=== PATIENT | male | born 1960 | race Caucasian/White ===

== ENCOUNTER 2023-08-18 01:29 | Emergency (ER) | payer OTHER, SELFPAY ==
[2023-08-18 01:33] VITALS: BP 149/86
--- NOTE | 2023-08-18 03:00 | ED.MUSCINJ ---
HPI-Injury
General
Chief Complaint: Fall
Source: patient and spouse
Exam Limitations: none
Time Seen by Provider: 08/18/23 02:51
Nursing documentation reviewed up to this point in time: agreed with
Travel History
Have you had any contact with someone who has COVID-19?: No
Do you have any symptoms of coronavirus? Fever > 100 degrees, chills, cough, shortness of breath, sore throat, loss of taste or smell, muscle aches, or headache?: No
History of Present Illness-Injury
Initial Injury comments:
Pleasant 63-year-old male that presents with left shoulder injury. [place] a step and slammed his shoulder into a concrete wall. Patient had immediate pain. Denies head injury or
loss of consciousness. Denies numbness or tingling. He states that the pain is on the upper arm. He has no elbow pain. Denies any chest pain or shortness of breath. Reports no other injury.
Past History
Past History
ED Past Medical History: HTN and Other (nephrolithiasis)
ED Past Surgical History: Other (1981 upper jaw repair due to bone deficiency on right)
Patient has exhibited threatening behavior?: No
PSI?: No
Social History
Tobacco: Non-smoker
Alcohol: None
Drug: None
Personal:
Living: with family
Employment: Employed
Family History
Family History: Other (reviewed and non-contributory)
Musculoskeletal Injury Exam
Musculoskeletal Injury Exam
Left Shoulder:
Pain with Movement?: Mild
Tender to palpation?: Mild (Medial arm)
Soft tissue swelling?: None
External deformity and angulation?: None
Joint effusion?: None
Contusion?: None
Hematoma-local bleeding into tissue?: None
Strain- Sprain- Tear (Connective tissue injury)?: Moderate
Crepitus with movement?: No
Malalignment/deformity?: No
Range of motion: Limited (Secondary to pain)
Distal skin color and temperature: normal-warm & good color
Capillary Refill: normal
Normal distal neurovascular exam?: Yes
Phy Exam
General Physical Exam
General Presentation: well appearing and mild distress
General age: appears stated age
General Skin: warm
General Habitus: normal
General Mental: alert
General Hydration: appears well hydrated
Cardiovascular Exam
Cardiovascular Exam: regular rate/rhythm and no edema
Pulmonary Exam
Pulmonary Exam: lungs clear and no respiratory distress
Neurological Exam
Neurological Exam: alert and oriented x3
Musculoskeletal Exam
Musculoskeletal Exam: full ROM, neck pain and back tenderness
Skin Exam
Skin Exam: normal color and warm/dry
Psychiatric Exam
Psychiatric Exam: normal mood/affect and anxious
Injury Course
Orders/Labs/Results
Orders:
Orders
08/18/23 01:38
Shoulder, Left, Trauma CR [CR Shoulder, Trauma - Left] Urgent
Comment:
Reason For Exam: injury and pain
08/18/23 03:00
Sling Left-Treatment ONCE
Oxycodone/Acetaminophen [Percocet 5/325] 2 tablet PO NOW STA
*Radiology
Radiology exam reviewed: all reviewed NAD by ED Provider (No obvious osseous abnormality)
*Critical Care Note
Total Time (30-74mins, 75-104mins- exclusive of procedures): Not Applicable
ED Attending Note
-
Portions of this chart may have been created with voice recognition software.� Occasional wrong word or��sound alike� substitutions may have occurred due to the inherent limitations of voice recognition software.
Discharge Plan
Departure
Patient Disposition: Home (Routine Discharge)
Date of Disposition: 08/18/23
Time of Disposition: 03:04
Patient with high blood pressure during this ER visit?: Yes
Condition: Good
Discharge Problem:
Injury of shoulder, left
Instructions: Rotator Cuff Injury (DC), Shoulder Sprain ED, How to Use a Shoulder Sling ED, BLOOD PRESSURE
Prescriptions:
New
oxycodone-acetaminophen [Percocet] 5-325 mg tablet
1 tab PO Q6HPRN PRN (Reason: pain) Qty: 10 0RF
No Action
atorvastatin 20 mg Tablet
40 mg PO QPM Qty: 60 0RF
lisinopril 20 mg Tablet
20 mg PO DAILY Qty: 30 0RF
clopidogrel 75 mg Tablet
75 mg PO DAILY 7 Days Qty: 7 0RF
amlodipine 5 mg Tablet
5 mg PO DAILY Qty: 30 0RF
aspirin 81 mg Tablet,Delayed Release (Dr/Ec)
81 mg PO DAILY Qty: 30 0RF
Referrals:
Evelina Leonard CRNP [Family Provider] -
Jensen Torres MD [Active] -
Activity Restrictions/Additional Instructions:
It was a pleasure meeting you and taking part in your care. We hope for your continued healing and wellness.
Please read discharge instructions in their entirety. However, they are for general education and may not describe your exact diagnosis at discharge. Information on your ER visit and medical conditions were discussed with you along with appropriate
follow up information...
If indicated, please take your medications as instructed and indicated on discharge paperwork.
Please schedule a follow up appointment as directed. Call to schedule an appointment
Please return to the emergency department with ANY change in, persisting, or worsening of symptoms. If any of your symptoms do not improve, or persist, or become more severe within 6-12 hours, please return to the emergency department for further
care.
Please return to the emergency department if you develop a headache, neck pain/stiffness, fever greater than 100.4F, chest pain, shortness of breath, persistent nausea, vomiting, slurred speech, difficulty walking, numbness/tingling, weakness, signs
of infection or any other symptoms that are worrisome to you.
If you have any questions or concerns please do not hesitate to call the Hospital at or E-mail me directly at [email or web address]
Interventions
Interventions:
*Risk Screen - Suicide Last Done: 08/18/23 02:26
*General Assessment Last Done: 08/18/23 03:26
*Neglect/Abuse Screening Last Done: 08/18/23 02:26
ED- Fall Risk Assessment Last Done: 08/18/23 02:26
*ED COVID-19 Vaccine History Last Done: 08/18/23 03:28
*Nursing Disposition Last Done: 08/18/23 03:26
ED-Musculoskeletal Assessment Last Done: 08/18/23 02:26
ED- Neurological Assessment Last Done: 08/18/23 02:26
ED-Skin Assessment Last Done: 08/18/23 02:26
Discharge Date and Time
Discharge Date/Time: 08/18/23 03:29
[2023-08-18] MEDS: PERCOCET 5/325 2 TABLET PO (03:10)
== END 2023-08-18 03:29 | disposition home or self-care (01) ==
LOC: EMR 01:29
PROVIDERS: EMERGENCY PHYSICIAN Student in an Organized Health Care Education/Training Program; FAMILY PHYSICIAN Nurse Practitioner Family
DX: S49.92XA Unspecified injury of left shoulder and upper arm, initial encounter (principal); M54.2 Cervicalgia; W10.9XXA Fall (on) (from) unspecified stairs and steps, initial encounter; Y93.01 Activity, walking, marching and hiking; Y92.009 Unspecified place in unspecified non-institutional (private) residence as the place of occurrence of the external cause; I10 Essential (primary) hypertension; Z87.442 Personal history of urinary calculi; Z86.73 Personal history of transient ischemic attack (TIA), and cerebral infarction without residual deficits
CPT/HCPCS: 99283; 73030

== ENCOUNTER 2023-09-24 06:09 | Day surgery (SDC) | payer OTHER, SELFPAY ==
[2023-09-17 06:50] VITALS: BMI 35.5
[2023-09-17 07:55] LABS: Hematocrit 42.1 % (39.0-52.0); Mean Corp Hgb Conc. 35.6 g/dL (33.0-37.0); Mean Corpuscular Hgb 29.1 pg (27.0-31.0); Mean Corpuscular Volume 81.6 fL (80.0-94.0); Mean Platelet Volume 10.4 fL (7.4-10.4); Platelet Count 225 10^3/uL (130-400); Red Blood Cell Count 5.16 10^6/uL (4.70-6.10); White Blood Cell Count 6.5 10^3/uL (4.8-10.8)
[2023-09-24] VITALS (9 sets, daily range): BP systolic 124–153; BP diastolic 69–98; BMI 35.5
[2023-09-24] MEDS: NORMOSOL-R 1000 IV (07:33)
[2023-09-24] MEDS: CELEBREX 200 MG PO (07:34)
[2023-09-24] MEDS: TYLENOL 1000 MG PO (07:34)
[2023-09-24] MEDS: ZOFRAN 4 MG IV (10:50)
== END 2023-09-24 12:36 | disposition home or self-care (01) ==
LOC: SDS 06:09
PROVIDERS: ATTENDING PHYSICIAN Orthopaedic Surgery Hand Surgery; FAMILY PHYSICIAN Nurse Practitioner Family
DX: M75.102 Unspecified rotator cuff tear or rupture of left shoulder, not specified as traumatic (principal); M75.42 Impingement syndrome of left shoulder
CPT/HCPCS: 29827; 36415; 85027; 93005; C1713

== ENCOUNTER 2024-09-25 06:16 | Day surgery (SDC) | payer OTHER, SELFPAY | END 2024-09-25 10:23 | disposition home or self-care (01) | LOC: GI 06:16 | PROVIDERS: ATTENDING PHYSICIAN Specialist | DX: Z12.11 Encounter for screening for malignant neoplasm of colon (principal); K57.30 Diverticulosis of large intestine without perforation or abscess without bleeding; K63.5 Polyp of colon; D12.3 Benign neoplasm of transverse colon; Z80.0 Family history of malignant neoplasm of digestive organs | CPT/HCPCS: 45380; 88305 ==